=== PATIENT | male | born 1995 | race Two or more races ===

== ENCOUNTER → 2016-11-25 | Outpatient (CLI) | payer SELFPAY ==
--- NOTE | 2016-11-25 20:46 | REP ---
Right shoulder: Three views: History: Acute pain in the right shoulder. Findings: The right glenohumeral and acromioclavicular joints are normally aligned. Periarticular soft tissues are unremarkable. No fracture or subluxation is seen. Impression: Negative views of the right shoulder. Signed by Alberto Jacobson MD 11/26/2016 07:55 A
== END ==
LOC: M LRY 19:39
PROVIDERS: ATTEND Nurse Practitioner Family
DX: M25.511 Pain in right shoulder (principal)